=== PATIENT | male | born 1940 | race Caucasian/White ===

== ENCOUNTER 2023-12-31 11:19 | Emergency (ER) | payer MEDICARE ==
[~2023-12-31] VITALS: Ht 175.3 cm; Wt 83.9 kg
[2023-12-31] MEDS ORDERED: KETOROLAC TROMETHAMINE 15 MG/ML VIAL ONE (12:29)
[2023-12-31] MEDS ORDERED: ONDANSETRON HCL/PF 4 MG/2 ML VIAL ONE (12:29)
[2023-12-31] MEDS: IV NS 0.9% 1,000 ML BAG IV ONE (12:37)
[2023-12-31] MEDS: ONDANSETRON HCL/PF 4 MG/2 ML VIAL IVP ONE (12:38)
[2023-12-31] MEDS: KETOROLAC TROMETHAMINE 15 MG/ML VIAL IV ONE (12:38)
[2023-12-31 12:42] VITALS: BP 158/90; TEMP 98.5; O2SAT 90
== END 2023-12-31 12:46 | disposition left against medical advice (07) ==
LOC: ER 11:23
DX: R53.1 Weakness (principal); I11.0 Hypertensive heart disease with heart failure; I50.9 Heart failure, unspecified; Z88.1 Allergy status to other antibiotic agents
CPT/HCPCS: J1885; J2405; J7030